=== PATIENT | female | born 1965 | race Two or more races ===

== ENCOUNTER 2017-09-05 09:24 | Emergency (ER) | END 2017-09-05 10:58 | disposition home or self-care (01) ==

== ENCOUNTER 2017-09-13 09:38 | Emergency (ER) | END 2017-09-13 13:45 | disposition home or self-care (01) ==

== ENCOUNTER 2018-06-17 10:28 | Emergency (ER) | END 2018-06-17 12:59 | disposition home or self-care (01) ==

== ENCOUNTER 2018-09-28 08:11 | Emergency (ER) | payer OTHER ==
[~2018-09-28] VITALS: Ht 167.6 cm; Wt 53.2 kg
[~2018-09-28 08:11] MED LIST: AZIT250T PO; BENZ-6 PO; D-ME473S2 PO; FLUT9.9S NASAL; IBUP-1541 PO; LORA1TAB54 PO
[2018-09-28 08:15] VITALS: Ht 167.6 cm; Wt 53.2 kg
[2018-09-28] MEDS ORDERED: KETOROLAC 30 MG INJ IV STA (08:34)
[2018-09-28] MEDS ORDERED: TRAM50TA2 PO (09:27)
[2018-09-28] MEDS ORDERED: ONDA4TAB14 PO (09:49)
[2018-09-28] MEDS ORDERED: IBUP-1542 PO (09:49)
--- NOTE | 2018-09-28 10:07 | ERD ---
ER Documentation Chief Complaint Chief Complaint Complains of abdominal pain x 3 days HPI Patient is a 53-year-old female with no medical problems who presents with abdominal pain. The patient has had pain every day she said for the past 8-9 months. The pain is worse in the morning and comes and goes throughout the day. She tried tramadol for pain. She has no fevers. She has no vomiting or diarrhea. Upon review of old medical records this is the patient's fifth visit to the ER since 2006. She goes to [facility] for her care. ROS All systems reviewed and are negative except as per history of present illness. Medications Home Meds Active Scripts Ondansetron (Ondansetron Odt) 4 Mg Tab.rapdis, 4 MG PO Q6H PRN for NAUSEA AND/OR VOMITING, #10 TAB Prov:AMADEO DE LA PAZ MD 09/28/18 Ibuprofen* (Motrin*) 600 Mg Tab, 600 MG PO Q6H PRN for PAIN AND OR ELEVATED TEMP, #30 TAB Prov:AMADEO DE LA PAZ MD 09/28/18 Reported Medications Tramadol HCl (Tramadol HCl) 50 Mg Tablet, 50 MG PO DAILY PRN for PAIN LEVEL 6- 10, #120 TAB 09/28/18 Discontinued Scripts Dextromethorphan Hb-Promethazine Hcl* (Promethazine DM* Syrup) 473 Ml Syrup, 5 ML PO Q6 PRN for COUGH, #1 BOTTLE Prov:DAMASO PITTMAN DO 06/17/18 Benzonatate* (Tessalon Perle*) 100 Mg Capsule, 100 MG PO Q8H PRN for COUGH, #30 CAP Prov:DAMASO PITTMAN DO 06/17/18 Benzonatate* (Tessalon Perle*) 100 Mg Capsule, 100 MG PO Q8H PRN for COUGH, #20 CAP Prov:YAMILET HUERTAS PA-C 09/13/17 Dextromethorphan Hb-Promethazine Hcl* (Promethazine DM* Syrup) 473 Ml Syrup, 5 ML PO Q6 PRN for COUGH, #4 OZ Prov:YAMILET HUERTAS PA-C 09/13/17 Azithromycin* (Zithromax*) 250 Mg Tablet, 250 MG PO .NicPACK DIRECTED, #6 TAB TAKE 500 MG (2 TABS) THE FIRST DAY THEN 250 MG (1 TAB) DAYS 2-5 Prov:LATASHA ROWLAND PA-C 09/05/17 Benzonatate* (Tessalon Perle*) 100 Mg Capsule, 100 MG PO Q8H PRN for COUGH, #20 CAP Prov:LATASHA ROWLANDC 09/05/17 Fluticasone Propionate (Flonase Allergy Relief) 9.9 Ml [place].susp, 1 SPRAY NASAL BID, #1 BOTTLE TO EACH NOSTRIL Prov:LATASHA ROWLAND PA-C 09/05/17 Ibuprofen* (Ibuprofen*) 400 Mg Tablet, 400 MG PO Q6H PRN for PAIN, #30 TAB Prov:LATASHA ROWLAND PA-C 09/05/17 Loratadine/Pseudoephedrine* (Claritin-D* 12 Hr) 5-120 Mg Tab.er.12h, 1 TAB PO Q12, #30 TAB.SA Prov:LATASHA ROWLAND PA-C 09/05/17 Allergies Allergies: Coded Allergies: No Known Allergy (Unverified , 09/28/18) PMhx/Soc Medical and Surgical Hx: pt denies Medical Hx History of Surgery: No Anesthesia Reaction: No Hx Neurological Disorder: No Hx Respiratory Disorders: No Hx Cardiac Disorders: No Hx Psychiatric Problems: No Hx Miscellaneous Medical Probl: No Hx Alcohol Use: No Hx Substance Use: No Hx Tobacco Use: No Smoking Status: Never smoker FmHx Family History: diabetes Physical Exam Vitals Vital Signs Date Temp Pulse Resp B/P (MAP) Pulse Ox O2 O2 Flow FiO2 Time Delivery Rate 09/28/18 98.5 67 20 119/55 100 08:15 (76) Physical Exam Const: No acute distress Head: Atraumatic Eyes: Normal Conjunctiva ENT: Normal External Ears, Nose and Mouth. Neck: Full range of motion. No meningismus. Resp: Clear to auscultation bilaterally Cardio: Regular rate and rhythm, no murmurs Abd: Soft, diffuse tenderness to palpation without rebound or guarding Skin: No petechiae or rashes Back: No midline or flank tenderness Ext: No cyanosis, or edema Neur: Awake and alert Psych: Normal Mood and Affect Result Diagram: 09/28/18 0845 09/28/18 0845 Results 24 hrs Laboratory Tests Test 09/28/18 08:45 White Blood Count 5.9 10^3/ul Red Blood Count 4.34 10^6/ul Hemoglobin 12.4 g/dl Hematocrit 38.0 % Mean Corpuscular Volume 87.6 fl Mean Corpuscular Hemoglobin 28.6 pg Mean Corpuscular Hemoglobin Concent 32.6 g/dl Red Cell Distribution Width 12.1 % Platelet Count 284 10^3/UL Mean Platelet Volume 9.5 fl Immature Granulocytes % 0.300 % Neutrophils % 59.6 % Lymphocytes % 26.2 % Monocytes % 9.1 % Eosinophils % 3.9 % Basophils % 0.9 % Nucleated Red Blood Cells % 0.0 /100WBC Immature Granulocytes # 0.020 10^3/ul Neutrophils # 3.5 10^3/ul Lymphocytes # 1.5 10^3/ul Monocytes # 0.5 10^3/ul Eosinophils # 0.2 10^3/ul Basophils # 0.1 10^3/ul Nucleated Red Blood Cells # 0.0 10^3/ul Urine Color YELLOW Urine Clarity CLEAR Urine pH 6.0 Urine Specific [place] 1.011 Urine Ketones NEGATIVE mg/dL Urine Nitrite NEGATIVE mg/dL Urine Bilirubin NEGATIVE mg/dL Urine Urobilinogen NEGATIVE mg/dL Urine Leukocyte Esterase NEGATIVE Pravin/ul Urine Hemoglobin NEGATIVE mg/dL Urine Glucose NEGATIVE mg/dL Urine Total Protein NEGATIVE mg/dl Sodium Level 140 mmol/L Potassium Level 3.9 mmol/L Chloride Level 104 mmol/L Carbon Dioxide Level 29 mmol/L Anion Gap 7 Blood Urea Nitrogen 10 mg/dl Creatinine 0.74 mg/dl Est Glomerular Filtrat Rate mL/min > 60 mL/min Glucose Level 83 mg/dl Calcium Level 9.4 mg/dl Total Bilirubin 0.5 mg/dl Direct Bilirubin 0.00 mg/dl Indirect Bilirubin 0.5 mg/dl Aspartate Amino Transf (AST/SGOT) 26 IU/L Alanine Aminotransferase (ALT/SGPT) 14 IU/L Alkaline Phosphatase 54 IU/L Total Protein 7.7 g/dl Albumin 4.0 g/dl Globulin 3.70 g/dl Albumin/Globulin Ratio 1.08 Lipase 104 U/L Current Medications Medications Dose Sig/Jennifer Start Time Status Last (Trade) Ordered Route PRN Stop Time Admin Dose Reason Admin Ketorolac 30 mg ONCE STAT 09/28/18 DC 09/28/18 Tromethamine IV 08:34 08:59 (Toradol) 09/28/18 08:35 Procedures/MDM CT abdomen pelvis read by radiology. Patient is a 53-year-old female with no medical problems who presents with abdominal pain for the past 8-9 months. Laboratory studies are normal. CT scan shows no sign of surgical process at this time. I doubt appendicitis, cholecystitis, pancreatitis, or bowel obstruction. I believe outpatient management is appropriate. The patient was provided with copies of laboratory studies and CT scan result prior to discharge. She should follow-up with her primary doctor within 24-48 hours. She can return sooner for any worsening symptoms. Departure Diagnosis: Primary Impression: Abdominal pain Abdominal location: generalized Qualified Codes: R10.84 - Generalized abdominal pain Condition: Fair Patient Instructions: Abdominal Pain Referrals: Your doctor Additional Instructions: Llame al doctor MAANA y vaughn roxanne JULIO PARA DENTRO DE 1-2 GONCALVES.Dgale a la secretaria que nosotros le instruimos hacer esta julio.Avise o llame si mcgowan condicin se empeora antes de la julio. Regresa aqui si peor o no mejor. AMADEO DE LA PAZ MD Sep 28, 2018 10:07
[2018-09-28 10:08] VITALS: BP 92/63; PULSE 61; RESP 17
== END 2018-09-28 10:49 | disposition home or self-care (01) ==
LOC: E/R 08:11
DX: R10.84 Generalized abdominal pain (principal)
CPT/HCPCS: 36415; 74176; 80053; 81003; 83690; 85025; 96374; J1885; Z7502

== ENCOUNTER 2018-11-07 23:50 | Emergency (ER) | payer OTHER ==
[~2018-11-07] VITALS: Ht 447 cm; Wt 54.0 kg
[~2018-11-07 23:50] MED LIST changes: -AZIT250T PO; -BENZ-6 PO; -D-ME473S2 PO; -FLUT9.9S NASAL; -IBUP-1541 PO; +IBUP-1542 PO; -LORA1TAB54 PO; +ONDA4TAB14 PO; +TRAM50TA2 PO
[2018-11-08 00:09] VITALS: Ht 447 cm; Wt 54.0 kg
[2018-11-08] MEDS ORDERED: LIDOCAINE/MYLANTA 40 ML BTL PO STA (02:04)
[2018-11-08] MEDS ORDERED: SOD CHLORIDE 0.9% 1,000 ML IV STA (02:04)
[2018-11-08] MEDS ORDERED: BELLADONNA/PHENOBARBITAL TAB PO STA (02:04)
[2018-11-08] MEDS ORDERED: ONDANSETRON 4 MG INJ IV STA (02:04)
[2018-11-08] MEDS ORDERED: FAMOTIDINE 20 MG INJ IV STA (02:04)
[2018-11-08 03:35] VITALS: BP 110/70; PULSE 77; RESP 17
--- NOTE | 2018-11-08 04:12 | ERD ---
ER Documentation Chief Complaint Chief Complaint left abdominal pain since 1999 HPI This is a 53-year-old female with a past medical history of chronic abdominal pain, ongoing for the last 8-9 months who is presenting with an exacerbated episode. The patient reports that typically her pain is epigastric in nature, but now she is endorsing left lower quadrant abdominal pain. It is waxing and waning, sharp and cramping. It is different than how she presented earlier in the year. The patient endorses nausea but no vomiting. She does not endorse any diarrhea. She has not had any black or bloody or tarry stools. The patient does endorse chronic constipation. She denies any dysuria or hematuria. She has had some urgency and frequency. The patient takes tramadol at home, but she reports that this is had only a marginal benefit. The patient denies feeling sick recently. The patient denies fever or chills. The patient has had no headache or vision changes. The patient does not endorse neck or back pain. The patient denies lightheadedness or dizziness. The patient has had no chest pain or trouble breathing. The patient has had no focal deficits. The patient has had no weakness or numbness or tingling to the face or extremities. ROS All systems reviewed and are negative except as per history of present illness. Medications Home Meds Active Scripts Ondansetron (Ondansetron Odt) 4 Mg Tab.rapdis, 4 MG PO Q6H PRN for NAUSEA AND/OR VOMITING, #10 TAB Prov:AMADEO DE LA PAZ MD 09/28/18 Ibuprofen* (Motrin*) 600 Mg Tab, 600 MG PO Q6H PRN for PAIN AND OR ELEVATED TEMP, #30 TAB Prov:AMADEO DE LA PAZ MD 09/28/18 Reported Medications Tramadol HCl (Tramadol HCl) 50 Mg Tablet, 50 MG PO DAILY PRN for PAIN LEVEL 6- 10, #120 TAB 09/28/18 Allergies Allergies: Coded Allergies: No Known Allergy (Unverified , 09/28/18) PMhx/Soc History of Surgery: No Anesthesia Reaction: No Hx Neurological Disorder: No Hx Respiratory Disorders: No Hx Cardiac Disorders: No Hx Psychiatric Problems: No Hx Miscellaneous Medical Probl: Yes Hx Alcohol Use: No Hx Substance Use: No Hx Tobacco Use: No Smoking Status: Never smoker FmHx Family History: No diabetes Physical Exam Vitals Vital Signs Date Temp Pulse Resp B/P (MAP) Pulse Ox O2 O2 Flow FiO2 Time Delivery Rate 11/08/18 99.6 77 17 110/70 100 Room Air 03:35 (83) 11/08/18 99.6 75 14 108/69 100 Room Air 02:41 (82) 11/08/18 99.6 73 18 104/74 100 Room Air 02:02 (84) 11/08/18 99.6 92 18 109/56 100 00:09 (73) Physical Exam Const: No apparent distress, well-developed, well-nourished Head: Normocephalic, Atraumatic Eyes: Normal Conjunctiva. Extraocular movements intact. Pupils equal, round and reactive to light ENT: Normal External Ears, Nose and Mouth. Neck: Full range of motion. No meningismus. Resp: Clear to auscultation bilaterally, No wheezes, rales or rhonchi Cardio: Regular rate and rhythm. No murmurs, rubs or gallops Abd: Soft, non distended. Suprapubic and left lower quadrant tenderness. No rebound or guarding. Normal bowel sounds Skin: No petechiae or rashes Back: No midline tenderness. No CVA tenderness Ext: No cyanosis, or edema Neur: Awake and alert, oriented 4. Cranial nerves intact. No facial droop. Normal strength, sensation and coordination. Psych: Normal Mood and Affect Result Diagram: 11/08/18 0200 11/08/18 0200 Results 24 hrs Laboratory Tests Test 11/08/18 02:00 11/08/18 02:04 11/08/18 02:06 White Blood Count 12.0 10^3/ul Red Blood Count 4.34 10^6/ul Hemoglobin 12.3 g/dl Hematocrit 38.6 % Mean Corpuscular Volume 88.9 fl Mean Corpuscular Hemoglobin 28.3 pg Mean Corpuscular Hemoglobin Concent 31.9 g/dl Red Cell Distribution Width 12.5 % Platelet Count 287 10^3/UL Mean Platelet Volume 10.1 fl Immature Granulocytes % 0.500 % Neutrophils % 74.5 % Lymphocytes % 13.9 % Monocytes % 8.9 % Eosinophils % 1.6 % Basophils % 0.6 % Nucleated Red Blood Cells % 0.0 /100WBC Immature Granulocytes # 0.060 10^3/ul Neutrophils # 9.0 10^3/ul Lymphocytes # 1.7 10^3/ul Monocytes # 1.1 10^3/ul Eosinophils # 0.2 10^3/ul Basophils # 0.1 10^3/ul Nucleated Red Blood Cells # 0.0 10^3/ul Urine Color YELLOW Urine Clarity CLEAR Urine pH 6.0 Urine Specific [place] 1.024 Urine Ketones NEGATIVE mg/dL Urine Nitrite NEGATIVE mg/dL Urine Bilirubin NEGATIVE mg/dL Urine Urobilinogen NEGATIVE mg/dL Urine Leukocyte Esterase NEGATIVE Pravin/ul Urine Microscopic RBC 16 /HPF Urine Microscopic WBC 1 /HPF Urine Squamous Epithelial Cells FEW /HPF Urine Mucus FEW /HPF Urine Hemoglobin 2+ mg/dL Urine Glucose NEGATIVE mg/dL Urine Total Protein NEGATIVE mg/dl Sodium Level 142 mmol/L Potassium Level 4.0 mmol/L Chloride Level 106 mmol/L Carbon Dioxide Level 27 mmol/L Anion Gap 9 Blood Urea Nitrogen 12 mg/dl Creatinine 0.73 mg/dl Est Glomerular Filtrat Rate mL/min > 60 mL/min Glucose Level 110 mg/dl Calcium Level 9.3 mg/dl Total Bilirubin 0.5 mg/dl Direct Bilirubin 0.00 mg/dl Indirect Bilirubin 0.5 mg/dl Aspartate Amino Transf (AST/SGOT) 23 IU/L Alanine Aminotransferase (ALT/SGPT) < 6 IU/L Alkaline Phosphatase 74 IU/L Total Protein 8.1 g/dl Albumin 4.2 g/dl Globulin 3.90 g/dl Albumin/Globulin Ratio 1.07 Lipase 130 U/L Bedside Urine pH (LAB) 7.0 Bedside Urine Protein (LAB) Negative Bedside Urine Glucose (UA) Negative Bedside Urine Ketones (LAB) Negative Bedside Urine Blood 2+ Bedside Urine Nitrite (LAB) Negative Bedside Urine Leukocyte Esterase (L Negative POC Beta HCG, Qualitative NEGATIVE Current Medications Medications Dose Sig/Jennifer Start Time Status Last (Trade) Ordered Route PRN Stop Time Admin Dose Reason Admin Sodium 1,000 ml @ Q1H STAT 11/08/18 DC 11/08/18 Chloride 1,000 mls/hr IV 02:04 11/08/18 02:07 03:03 Ondansetron 4 mg ONCE STAT 11/08/18 DC 11/08/18 HCl (Zofran IV 02:04 11/08/18 02:34 Inj) 02:05 Famotidine 20 mg ONCE STAT 11/08/18 DC 11/08/18 (Pepcid Iv) IV 02:04 11/08/18 02:34 02:05 40 ml ONCE STAT 11/08/18 DC 11/08/18 Miscellaneous PO 02:04 11/08/18 02:34 Medication 02:05 (Gi Cocktail (2)) Belladonna/ 2 tab ONCE STAT 11/08/18 DC 11/08/18 Phenobarbital PO 02:04 11/08/18 02:35 () 02:05 Procedures/MDM MDM The patient's presentation warrants further investigation. Previous medical records, if available, were reviewed. LABS The patient's laboratory testing was obtained and reviewed. No emergent treatment was required unless described below. CBC: Leukocytosis without shift, potentially reactive. No E/o anemia or thrombocytopenia Chemistry: No E/o severe acidosis or alkalosis or renal failure or liver disease or diabetic ketoacidosis Lipase: No E/o pancreatitis Urine: No E/o acute infection. + Hematuria HCG: Negative IMAGING Imaging and Radiology interpretation reviewed. CT abdomen pelvis FINDINGS: There is a subpleural nodule identified within the lateral segment of the left lower lobe on axial image 3-13 measuring approximately 5 mm without significant change. There is no evidence for significant pleural effusion. The liver has a normal size and contour without focal areas of abnormal density. No intrahepatic nor extrahepatic biliary ductal dilatation is seen. The gallbladder demonstrates no wall thickening nor pericholecystic fluid. No biliary stones are evident. The pancreas is without areas of abnormal attenuation. The spleen is identified and has a normal size without abnormal density. The adrenal glands are unremarkable. The kidneys are without abnormal density. No hydroureteronephrosis nor nephroureterolithiasis is evident. The urinary bladder contains urine. There is moderate retained stool within the ascending and transverse colon. Multiple diverticula scattered throughout the colon most prominently within the descending and sigmoid colon region. There is surrounding inflammatory changes within the distal sigmoid colon consistent with acute diverticulitis. There is no significant free fluid or fluid collection. The appendix is visualized and is without abnormal thickening or surrounding inflammatory reaction. The uterus has a globular appearance and is without significant interval change. There is no significant pelvic free fluid. The aortoiliac vessels are without aneurysmal dilatation. The osseous structures are intact. IMPRESSION: 1. Acute distal descending colon diverticulitis. 2. Moderate retained stool within the proximal colon. 3. No CT evidence for appendicitis. 4. Stable left lower lobe 5 mm subpleural nodule previously identified on the patient's CT scan from September 28, 2018. Electronically viewed and signed by .Yoandy Garcia MD, MD on 11/08/2018 04:06 TREATMENT/DISPOSITION The patient presents with exacerbated chronic abdominal pain. The patient's pain was in the left lower quadrant, which she reports as new compared to previous episodes. A CT scan was completed to evaluate for emergent pathology. The CT reveals acute distal descending colon diverticulitis, which correlates with her symptoms. I do not see evidence of a systemic infection. The patient has no leukocytosis and her vital signs are unremarkable. I do not feel the patient is septic and I do not think the patient requires a full septic workup. I do feel that the patient requires antibiotics, but I believe that this may be completed in an outpatient setting. I do not see evidence of viscus perforation. The patient does not have any evidence of peritonitis. The patient does not have clinical symptoms concerning for mesenteric ischemia or ischemic colitis. The patient does not have right upper quadrant tenderness, and I have low suspicion for gallstones, cholecystitis or biliary colic. The patient does not have any epigastric pain. I have low suspicion for gastritis, PUD or GERD. The patient does not have left upper quadrant tenderness. I have low suspicion for pancreatitis. The patient does not have any right lower quadrant tenderness, or periumbilical tenderness. I have low suspicion for appendicitis. The patient's urinalysis does not reveal urinary tract infection. While the patient does not have obvious flank pain, the patient does have microscopic hematuria. That said, the patient CT did not demonstrate any evidence of nephrolithiasis. I have decreased suspicion for nephrolithiasis or renal colic. The patient does not have any palpable pulsatile mass or severe abdominal pain radiating to the back. I have low suspicion for aortic aneurysm, dissection or rupture. The patient was treated with IV fluids, Zofran, Pepcid and a GI cocktail with some improvement of her symptoms. DISCHARGE Upon reevaluation of the patient, symptoms have improved. No emergent diagnoses were identified. At this time, I feel that the patient stable for discharge. The patient was instructed to follow-up with a primary care physician in 1-3 days. The patient will be given strict precautions with which to return to the emergency department. Prescriptions: Cipro, Flagyl, MiraLAX, Zofran Disclaimer: Inadvertent spelling and grammatical errors are likely due to EHR/dictation software use and do not reflect on the overall quality of patient care. Note that the electronic time recorded on this note does not necessarily reflect the actual time of the patient encounter. Departure Diagnosis: Primary Impression: Diverticulitis Additional Impressions: Abdominal pain Abdominal location: left lower quadrant Qualified Codes: R10.32 - Left lower quadrant pain Leukocytosis Leukocytosis type: unspecified Qualified Codes: D72.829 - Elevated white blood cell count, unspecified Hematuria Hematuria type: unspecified type Qualified Codes: R31.9 - Hematuria, unspecified Diverticulosis Constipation Constipation type: unspecified constipation type Qualified Codes: K59.00 - Constipation, unspecified Condition: Stable Patient Instructions: Abdominal Pain, Nausea and Vomiting-Adult, Understanding Diverticulosis and Diverticulitis, Constipation (Adult) Additional Instructions: Thank you for for coming to [facility] for your care today. Please ask your nurse or provider if you have questions about your care today and do not leave until all your questions have been answered. Please use any medications given as directed and follow-up with your doctor (or the doctor you were referred to) in the next 1-3 days. If you do not have a primary care doctor you may follow up at the [facility] or counts include 234 beds at the [facility] (listed below). You may also use motrin and tylenol as needed for fever and/or pain unless instructed otherwise by your provider or nurse. Indications for more urgent follow-up have been discussed, but you may return to the Emergency Department at ANY time for any worrisome or worsening symptoms. If you have abdominal pain, please know that no test or exam you received is perfect and you should follow up within 8 hours for continued pain. If you had any imaging studies today, such as an X-Ray or CT Scan, these studies will be reviewed later by a radiologist. You will be called if there are important findings that were not identified today, so make sure the contact information you provided at registration is correct. If you received any narcotic pain control medicine today, such as Vicodin, Morphine or Dilaudid, your coordination and judgment may be affected for a number of hours. Please do not drive or operate heavy machinery, and you may want someone to assist you at home. If you were given a prescription for narcotic medication, be aware that it is very addictive- use sparingly and only if necessary. PLEASE SEEK FURTHER EVALUATION AND MANAGEMENT AT YOUR DOCTORS OFFICE WITHIN THE NEXT 1-3 DAYS. IT IS YOUR RESPONSIBILITY TO MAKE AN APPOINTMENT FOR FOLOW-UP CARE. IF YOU HAVE A PRIMARY DOCTOR, PLEASE CALL THEIR OFFICE TO SCHEDULE AN APPOINTMENT FOR FOLLOW UP. IF YOU DO NOT HAVE A PRIMARY DOCTOR YOU CAN CALL OUR PHYSICIAN REFERRAL HOTLINE AT IF YOU CAN NOT AFFORD TO SEE A PHYSICIAN YOU CAN CHOSE FROM THE FOLLOWING [facility]: [facility] [address] [facility] [place] [address] [address] [facility] [address] [facility]. [facility] [address] [facility]. [facility]. [address] NEIDA BLAND MD Nov 08, 2018 04:12
[2018-11-08] MEDS ORDERED: METR500T PO (04:20)
[2018-11-08] MEDS ORDERED: CIPR500T4 PO (04:20)
[2018-11-08] MEDS ORDERED: ONDA8TAB9 PO (04:20)
[2018-11-08] MEDS ORDERED: POLY17PO6 PO (04:20)
== END 2018-11-08 04:46 | disposition home or self-care (01) ==
LOC: E/R 23:50
DX: K57.32 Diverticulitis of large intestine without perforation or abscess without bleeding (principal); D72.829 Elevated white blood cell count, unspecified; K57.30 Diverticulosis of large intestine without perforation or abscess without bleeding; R31.9 Hematuria, unspecified
CPT/HCPCS: 36415; 74176; 80053; 81001; 81025; 83690; 85025; 96374; 96375; J2405; J7030; Z7502; Z7610; 81003